=== PATIENT | female | born 1995 | race Caucasian/White ===

== ENCOUNTER 2018-05-25 23:19 | Emergency (ER) | payer OTHER ==
[~2018-05-25] VITALS: Ht 165.1 cm; Wt 53.1 kg
[2018-05-25] MEDS ORDERED: BIRTH CONTROL (23:37)
--- NOTE | 2018-05-25 23:37 | NUR ---
PT PRESENTED AFTER STARTING NEW MED MACROBID AND NOW SKIN IS RED AND ITCHY. MONITORS APPLIED, SIDEAILS UP X2, CLL LIGHT WITHIN REACH. AWAITING ERP FOR EVAL AND ORDERS
[2018-05-25] MEDS ORDERED: DIPHENHYDRAMINE 50 MG CAPSULE ONE (23:47)
[2018-05-25] MEDS ORDERED: FAMOTIDINE 20 MG TABLET ONE (23:48)
--- NOTE | 2018-05-25 23:52 | NUR ---
PT MEDICATED PER MAR
[2018-05-26] MEDS ORDERED: DIPHENHYDRAMINE 25 MG CAPSULE PO ONE
[2018-05-26] MEDS ORDERED: FAMOTIDINE 20 MG TABLET PO ONE
--- NOTE | 2018-05-26 00:12 | NUR ---
PT RESTING ON GURVICKIE, STATED " I FEEL BETTER", MONITORS IN PLACE, CALL LIGHT WITHIN REACH.
[2018-05-26 00:55] VITALS: BP 120/54
--- NOTE | 2018-05-26 00:55 | NUR ---
Break RN: re-evaluation done. patient discharged with prescriptions and instruction. verbalized understanding.
== END 2018-05-26 00:58 | disposition home or self-care (01) ==
LOC: ED 23:59
DX: L50.0 Allergic urticaria (principal); T50.995A Adverse effect of other drugs, medicaments and biological substances, initial encounter; Y92.89 Other specified places as the place of occurrence of the external cause
CPT/HCPCS: 99284; J7512; Q0163